=== PATIENT | male | born 1945 | race Hispanic/Latino ===

== ENCOUNTER 2017-04-01 07:59 | Emergency (ER) | payer OTHER, MEDICARE ==
[2017-04-01] MEDS ORDERED: ACETAMINOPHEN-CODEINE ELIXIR 5 ML UDCUP ONE (08:12)
== END 2017-04-01 09:18 | disposition home or self-care (01) ==
LOC: EDH 07:59
DX: J20.9 Acute bronchitis, unspecified (principal); I10 Essential (primary) hypertension; F03.90 Unspecified dementia, unspecified severity, without behavioral disturbance, psychotic disturbance, mood disturbance, and anxiety; Z72.0 Tobacco use
CPT/HCPCS: 87804

== ENCOUNTER 2017-06-20 09:17 | Emergency (ER) | payer OTHER, MEDICARE ==
[2017-06-20] MEDS ORDERED: LIDOCAINE HCL-MPF 1% 2ML VIAL ONE (09:40)
[2017-06-20] MEDS ORDERED: CEFTRIAXONE SODIUM 1 GM ONE (09:40)
[2017-06-20] MEDS ORDERED: ACETAMINOPHEN-CODEINE 300/30MG TAB ONE (09:40)
== END 2017-06-20 10:34 | disposition home or self-care (01) ==
LOC: EDH 09:17
DX: K02.9 Dental caries, unspecified (principal); I10 Essential (primary) hypertension; F03.90 Unspecified dementia, unspecified severity, without behavioral disturbance, psychotic disturbance, mood disturbance, and anxiety; Z72.0 Tobacco use
CPT/HCPCS: 96372; 99283; J0696; J3490

== ENCOUNTER 2020-03-14 12:01 | Observation (INO) | payer OTHER, MEDICARE ==
[~2020-03-14] VITALS: Ht 167.6 cm; Wt 69.5 kg
[2020-03-14 12:41] LABS: BASOPHILS % (AUTO) 0.4 % (0.0-5.0); EOSINOPHILS % (AUTO) 0.2 % (0.0-8.0); HEMATOCRIT 45.2 % (42-54); LYMPHOCYTES % (AUTO) 10.6 % (21.0-51.0); MEAN CORPUSCULAR HEMOGLOBIN 28.2 pg (27.0-33.0); MEAN CORPUSCULAR HGB CONC 33.4 g/dL (32.0-36.0); MEAN CORPUSCULAR VOLUME 84.3 fL (79-99); MONOCYTES % (AUTO) 3.4 % (3.0-13.0); NEUTROPHILS % (AUTO) 84.9 % (40.0-77.0); PLATELET COUNT (AUTO) 179 K/uL (130-400); RED BLOOD CELL COUNT(AUTO) 5.36 MIL/uL (4.50-6.20); RED CELL DISTRIBUTION WIDTH 13.6 % (11.0-15.5); WHITE BLOOD COUNT (AUTO) 16.8 K/uL (4.8-10.8)
[2020-03-14 12:48] LABS: CREATININE 1.3 mg/dL (0.5-1.5)
[2020-03-14 12:52] LABS: ALBUMIN 3.9 g/dL (3.5-5.0); BILIRUBIN,TOTAL 0.6 mg/dL (0.2-1.0); TOTAL PROTEIN, SERUM 7.4 g/dL (6.0-8.3)
[2020-03-14] MEDS ORDERED: ACETAMINOPHEN 325 MG TAB ONE (13:28)
[2020-03-14] MEDS ORDERED: ZOSYN 3.375GM+NS 50ML 50 ML IV ONE (13:28)
[2020-03-14] MEDS ORDERED: SODIUM CHLORIDE 0.9% 1000ML 1,000 ML IV ONE (13:29)
[2020-03-14 13:32] LABS: CREATINE KINASE, TOTAL 71 U/L (21-232); LIPASE 82 U/L (114-286)
[2020-03-14] MEDS ORDERED: IOHEXOL-350 75 ML VIAL IV ONE (17:21)
[2020-03-14] MEDS ORDERED: MEMANTINE HCL 5 MG TABLET ONE (20:50)
[2020-03-14] MEDS ORDERED: CITALOPRAM 20 MG TABLET PO ONE (22:30)
[2020-03-14] MEDS ORDERED: LACTATED RINGERS 1000ML 1,000 ML IV ONE (23:07)
[2020-03-15] MEDS ORDERED: ONDANSETRON HCL 4 MG/2 ML VIAL IVP PRN (02:15)
[2020-03-15] MEDS: LACTATED RINGERS 1000ML 1,000 ML IV SCH ×3 (02:15→21:12)
[2020-03-15] MEDS ORDERED: ACETAMINOPHEN 325 MG TAB PO PRN ×2 (02:15→10:30)
[2020-03-15] MEDS ORDERED: PANTOPRAZOLE 40 MG/VIAL IVP SCH (09:00)
[2020-03-15] MEDS ORDERED: CLONIDINE HCL 0.1 MG TABLET PO PRN (10:30)
[2020-03-15] MEDS ORDERED: TEMAZEPAM 15 MG CAPSULE PO PRN (10:30)
[2020-03-15] MEDS ORDERED: MORPHINE SULFATE 2 MG/ML 1ML SYG IVP PRN (10:30)
[2020-03-15] MEDS ORDERED: ACETAMINOPHEN 650 MG SUPPOSITORY RC PRN (10:30)
[2020-03-15] MEDS ORDERED: MORPHINE SULFATE 4 MG/1ML SYG IVP PRN (10:30)
[2020-03-15] MEDS: FAMOTIDINE 20MG TAB 20 MG TAB PO SCH (10:35)
[2020-03-15] MEDS: INSULIN HUMULIN R 100 UNIT/ML 3ML SQ SCH ×3 (11:30→21:00)
[2020-03-15] MEDS: ZOSYN 3.375GM+NS 50ML 50 ML IV SCH ×2 (13:00→21:12)
[2020-03-15 16:30] VITALS: BP 142/70
[2020-03-15 18:15] VITALS: BP 161/83
[2020-03-15 19:51] VITALS: BP 131/97
[2020-03-15 23:04] LABS: APPEARANCE,URINE Clear (CLEAR); BILIRUBIN,URINE Negative (NEGATIVE); COLOR,URINE Yellow (YELLOW); GLUCOSE, URINE (UA) Negative (NEGATIVE); KETONES,URINE Negative (NEGATIVE); LEUKOCYTE ESTERASE ,URINE Negative (NEGATIVE); NITRATE,URINE Negative (NEGATIVE); OCCULT BLOOD,URINE Negative (NEGATIVE); PROTEIN,URINE Negative (NEGATIVE)
[2020-03-15 23:39] VITALS: BP 156/87
[2020-03-15 23:46] LABS: BACTERIA,URINE Rare /HPF (None Seen); RBC,URINE 0-1 /HPF (0-1); SQUAMOUS EPITHELIAL CELL,UR 0-2 /HPF (0-2); WBC,URINE 0-1 /HPF (0-1)
[2020-03-16 04:00] VITALS: BP 169/70
[2020-03-16 04:15] VITALS: BP 152/79
[2020-03-16] MEDS: ZOSYN 3.375GM+NS 50ML 50 ML IV SCH (05:00)
[2020-03-16] MEDS: INSULIN HUMULIN R 100 UNIT/ML 3ML SQ SCH ×3 (06:28→16:11)
[2020-03-16 08:05] LABS: BASOPHILS % (AUTO) 1.1 % (0.0-5.0); HEMATOCRIT 39.4 % (42-54); LYMPHOCYTES % (AUTO) 27.9 % (21.0-51.0); MEAN CORPUSCULAR HEMOGLOBIN 28.1 pg (27.0-33.0); MEAN CORPUSCULAR HGB CONC 33.2 g/dL (32.0-36.0); MEAN CORPUSCULAR VOLUME 84.5 fL (79-99); MONOCYTES % (AUTO) 8.1 % (3.0-13.0); NEUTROPHILS % (AUTO) 61.5 % (40.0-77.0); PLATELET COUNT (AUTO) 97 K/uL (130-400); RED BLOOD CELL COUNT(AUTO) 4.66 MIL/uL (4.50-6.20); RED CELL DISTRIBUTION WIDTH 13.7 % (11.0-15.5); WHITE BLOOD COUNT (AUTO) 10.3 K/uL (4.8-10.8)
[2020-03-16 08:34] LABS: HEMOGLOBIN A1C 6.1 % (4.0-6.0)
[2020-03-16] MEDS: FAMOTIDINE 20MG TAB 20 MG TAB PO SCH (08:39)
[2020-03-16 08:40] LABS: CREATININE 1.3 mg/dL (0.5-1.5); MAGNESIUM 2.2 mg/dL (1.80-2.40); PHOSPHORUS 3.4 mg/dL (2.5-4.9); POTASSIUM 3.7 mmol/L (3.5-5.1); THYROID STIMULATING HORMONE 1.3 uIU/mL (0.36-3.74)
[2020-03-16] MEDS ORDERED: ASPIRIN 81MG TAB.CHEW PO SCH (09:00)
[2020-03-16] MEDS ORDERED: ENOXAPARIN SODIUM 40 MG/0.4 ML SYRINGE SQ SCH (09:00)
[2020-03-16 09:28] VITALS: BP 172/79
[2020-03-16] MEDS ORDERED: LEVOFLOXACIN 500 MG TABLET PO SCH (10:45)
[2020-03-16] MEDS ORDERED: METRONIDAZOLE 500 MG TABLET PO SCH (10:45)
[2020-03-16] MEDS ORDERED: PANTOPRAZOLE SODIUM 40 MG TABLET.DR PO SCH (10:45)
[2020-03-16] MEDS ORDERED: CITA20TA17 PO (12:12)
[2020-03-16] MEDS ORDERED: MEMA7CAP2 PO (12:12)
[2020-03-16] MEDS ORDERED: AMLO-258 PO (12:12)
[2020-03-16] MEDS ORDERED: METO-408 PO (12:12)
[2020-03-16 13:53] VITALS: BP 133/81
[2020-03-16 17:00] VITALS: BP_SYST 112; BP_SYST 156; BP_DIAS 54; BP_DIAS 63; BP_DIAS 78
== END 2020-03-16 18:00 ==
LOC: EDH 12:01 → EDHIP 22:00 → 3BH 03-15 17:51
PROVIDERS: ADMIT Internal Medicine Critical Care Medicine; ATTEND Internal Medicine Critical Care Medicine
DX: K52.9 Noninfective gastroenteritis and colitis, unspecified (principal); Z20.828 Contact with and (suspected) exposure to other viral communicable diseases; R11.2 Nausea with vomiting, unspecified; R19.7 Diarrhea, unspecified; E86.0 Dehydration; F03.90 Unspecified dementia, unspecified severity, without behavioral disturbance, psychotic disturbance, mood disturbance, and anxiety; F32.9 Major depressive disorder, single episode, unspecified; N40.0 Benign prostatic hyperplasia without lower urinary tract symptoms; N30.90 Cystitis, unspecified without hematuria; I10 Essential (primary) hypertension; F17.200 Nicotine dependence, unspecified, uncomplicated; Z86.73 Personal history of transient ischemic attack (TIA), and cerebral infarction without residual deficits; Z90.49 Acquired absence of other specified parts of digestive tract; Z79.899 Other long term (current) drug therapy
CPT/HCPCS: 36415 ×3; 71045; 74177; 80048; 80053; 81001; 82550; 82948 ×5; 83036; 83605; 83690; 83735; 84100; 84153; 84443; 84484; 85025 ×2; 87040 ×2; 87088; 87426; 87804 ×2; 93005; 96365; 96366 ×2; 99285; C9113; G0378 ×44; J2543 ×2; J7030; J7120 ×2; Q9967; U0003